=== PATIENT | female | born 1985 | race Caucasian/White ===

== ENCOUNTER 2016-10-28 10:37 | Emergency (ER) | payer MEDICAID ==
[~2016-10-28] VITALS: Ht 162.6 cm; Wt 115.2 kg
[2016-10-28 10:43] VITALS: BP 137/92
== END 2016-10-28 12:16 | disposition home or self-care (01) ==
LOC: ED 12:10
DX: L01.01 Non-bullous impetigo (principal); Z88.0 Allergy status to penicillin; Z90.49 Acquired absence of other specified parts of digestive tract
CPT/HCPCS: 99283